=== PATIENT | female | born 1960 | race African-American/Black ===

== ENCOUNTER 2022-02-14 12:59 | Inpatient (IN) | payer BC, SELFPAY ==
[2022-02-14 13:51] LABS: #Basophils 0.1 10x3/uL (0.0-0.2); #Eosinphils 0.1 10x3/uL (0.0-0.5); #Monocytes 0.4 10x3/uL (0.0-1.1); #Neutrophils 2.8 10x3/uL (1.5-8.4); %Basophils 0.9 % (0.0-2.0); %Eosinophils 1.1 % (0.0-6.0); %Lymphocytes 37.1 % (18.0-47.0); %Monocytes 7.3 % (0.0-10.0); %Neutrophils 53.4 % (40.0-75.0); Hemoglobin 13.4 g/dL (12.0-15.5); Mean Corpuscular HGB CONC 32.5 g/dL (32.0-36.0); Mean Corpuscular Hemoglobin 27.8 pg (27.0-33.0); Mean Corpuscular Volume 85.5 fl (81.6-98.3); Mean Platelet Volume 11.2 fl (7.4-10.4); Platelet Count 243 10x3/uL (150-450); RBC Distribution Width 14.5 % (11.5-14.5); Red Blood Cell (RBC) Count 4.82 10x6/uL (3.90-5.03); White Blood Cell (WBC) Count 5.3 10x3/uL (3.5-10.5)
[2022-02-14 14:14] LABS: ALT (SGPT) 27 U/L (8-55); AST (SGOT) 22 U/L (5-34); Albumin 3.9 g/dL (3.4-4.8); Alkaline Phosphatase 64 U/L (40-110); Anion Gap 14 mmol/L (10-20); BUN (Urea Nitrogen) 15 mg/dL (9.8-20.1); Bilirubin, Total 0.5 mg/dL (0.2-1.2); Calc. Creatinine Clearance 0 mL/min (70-130); Calcium 9.2 mg/dL (7.8-10.44); Carbon Dioxide 26 mmol/L (23-31); Chloride 108 mmol/L (98-107); Estimated GFR 51; Glucose 102 mg/dL (80-115); Potassium 3.9 mmol/L (3.5-5.1); Protein, Total 6.9 g/dL (5.8-8.1); Sodium 144 mmol/L (136-145)
[2022-02-14] MEDS ORDERED: Aspirin Chewable 81 MG TAB ONE (15:30)
[2022-02-14] MEDS ORDERED: Insulin Regular 300 UNITS/3 ML VIAL SC PRN (16:08)
[2022-02-14 16:30] LABS: INR-International Normal Ratio 0.9; PTT 24.5 sec (22.0-33.0); Prothrombin Time 9.9 sec (9.5-12.1)
[2022-02-14 17:40] LABS: Magnesium 2.3 mg/dL (1.6-2.6)
[2022-02-14 17:55] LABS: Syphilis Antibody Nonreactive (Nonreactive); Syphilis Antibody Index 0.05 S/CO (<1.00 Non-Reactive)
[2022-02-14 20:09] LABS: SARS-CoV-2 NAA Rapid Test Not Detected (NotDetected)
[2022-02-14 20:53] VITALS: BMI 35.5
[2022-02-14] MEDS ORDERED: Atorvastatin Calcium 40 MG TAB PO SCH (21:00)
[2022-02-14] MEDS: Famotidine 20 MG TAB PO SCH (21:55)
[2022-02-14] MEDS: Heparin 5,000 UNITS/ML VIAL SC SCH (21:56)
[2022-02-14] MEDS: Sodium Chloride 0.9% 1,000 ML IV SCH (21:56)
[2022-02-14 22:51] LABS: Amphetamine Not Detected (NotDetected); Barbiturates Screen Not Detected (NotDetected); Benzodiazepine Screen Not Detected (NotDetected); Cocaine Metabolite Screen Not Detected (NotDetected); Methadone Not Detected (NotDetected); Methamphetamine Not Detected (NotDetected); Opiate Screen Not Detected (NotDetected); Oxycodone Screen Not Detected (NotDetected); Phencyclidine (PCP) Not Detected (NotDetected); THC/Cannabinoid Screen Not Detected (NotDetected); Tricyclic Screen Not Detected (NotDetected)
[2022-02-15 04:39] LABS: #Basophils 0.1 10x3/uL (0.0-0.2); #Eosinphils 0.1 10x3/uL (0.0-0.5); #Monocytes 0.6 10x3/uL (0.0-1.1); #Neutrophils 2.4 10x3/uL (1.5-8.4); %Basophils 0.9 % (0.0-2.0); %Eosinophils 1.4 % (0.0-6.0); %Lymphocytes 43.6 % (18.0-47.0); %Monocytes 9.9 % (0.0-10.0); %Neutrophils 44.2 % (40.0-75.0); Hemoglobin 12.4 g/dL (12.0-15.5); Mean Corpuscular HGB CONC 32.2 g/dL (32.0-36.0); Mean Corpuscular Hemoglobin 27.6 pg (27.0-33.0); Mean Corpuscular Volume 85.7 fl (81.6-98.3); Mean Platelet Volume 11.1 fl (7.4-10.4); Platelet Count 230 10x3/uL (150-450); RBC Distribution Width 14.6 % (11.5-14.5); Red Blood Cell (RBC) Count 4.49 10x6/uL (3.90-5.03); White Blood Cell (WBC) Count 5.5 10x3/uL (3.5-10.5)
[2022-02-15 04:55] LABS: ALT (SGPT) 22 U/L (8-55); AST (SGOT) 19 U/L (5-34); Albumin 3.4 g/dL (3.4-4.8); Alkaline Phosphatase 66 U/L (40-110); Anion Gap 14 mmol/L (10-20); BUN (Urea Nitrogen) 14 mg/dL (9.8-20.1); Bilirubin, Total 0.4 mg/dL (0.2-1.2); Calc. Creatinine Clearance 102 mL/min (70-130); Calcium 8.7 mg/dL (7.8-10.44); Carbon Dioxide 24 mmol/L (23-31); Cardiac Risk 3.8 (Less than 4.5); Chloride 108 mmol/L (98-107); Cholesterol 192 mg/dl (< 200 Desired); Estimated GFR 77; Globulin 2.9 g/dL (2.4-3.5); Glucose 110 mg/dL (80-115); HDL Cholesterol 50 mg/dL (>60 Neg Risk); LDL Cholesterol, Calculated 121 mg/dL; Potassium 3.7 mmol/L (3.5-5.1); Protein, Total 6.3 g/dL (5.8-8.1); Sodium 142 mmol/L (136-145); Triglycerides 104 mg/dL (Less than 150)
[2022-02-15] MEDS: Aspirin 81 mg Enteric Coated Tablet PO SCH (08:35)
[2022-02-15] MEDS: Heparin 5,000 UNITS/ML VIAL SC SCH (08:36)
[2022-02-15] MEDS ORDERED: Enoxaparin Sodium 40 MG/0.4 ML SYRINGE SC SCH (09:00)
[2022-02-15] MEDS ORDERED: Clopidogrel Bisulfate 75 MG TAB PO SCH (09:00)
[2022-02-15] MEDS: Famotidine 20 MG TAB PO SCH ×2 (10:51→20:14)
[2022-02-15] MEDS: Sodium Chloride 0.9% 1,000 ML IV SCH (13:27)
[2022-02-15] MEDS ORDERED: Atorvastatin Calcium 40 MG TAB PO SCH (21:00)
[2022-02-16] MEDS: Famotidine 20 MG TAB PO SCH (08:07)
[2022-02-16] MEDS: Aspirin 81 mg Enteric Coated Tablet PO SCH (08:07)
[2022-02-16] MEDS ORDERED: Lisinopril 5 MG TAB PO SCH (09:00)
[2022-02-16 09:19] VITALS: BP 154/65; TEMP 98
[2022-02-19 12:36] LABS: ANA Symphony (Qualitative) Negative (Negative); ANA Symphony (Quantitative) 0.5 Ratio (< 0.7 Negative); CCP IgG Antibody 1.7 EliAU/mL (<7 Negative); Rheumatoid Factor IgA Antibody 4.9 IU/mL (<14 Negative); Rheumatoid Factor IgM Antibody 1.5 IU/mL (<3.5 Negative)
== END 2022-02-16 11:07 | disposition home or self-care (01) | DRG 65 ==
LOC: SUATTDRO 12:59 → CSHERS 12:59 → CSHIMCU 20:10
PROVIDERS: ADMIT Internal Medicine; ATTEND Internal Medicine
DX: I63.9 Cerebral infarction, unspecified (principal); G81.94 Hemiplegia, unspecified affecting left nondominant side; N17.9 Acute kidney failure, unspecified; R26.0 Ataxic gait; Z20.822 Contact with and (suspected) exposure to COVID-19; I10 Essential (primary) hypertension; Z98.51 Tubal ligation status; Z98.890 Other specified postprocedural states
CPT/HCPCS: 36415; 36416; 70450; 70551; 71045; 76770; 80053; 80061; 80306; 83090; 83520; 83735; 83880; 84484; 85025; 85610; 85652; 85730; 86038; 86200; 86225; 86780; 93005; 93010; 93306; 93880; J1644; J1815; J7050; U0002

== ENCOUNTER 2024-02-16 07:55 | Emergency (ER) | payer SELFPAY | END 2024-02-16 08:20 | disposition home or self-care (01) | LOC: CSHERS 07:55 | DX: M76.61 Achilles tendinitis, right leg (principal); Z55.6 Problems related to health literacy | CPT/HCPCS: 99282 ==